=== PATIENT | female | born 1980 | race Two or more races ===

== ENCOUNTER 2021-09-28 13:27 | Emergency (ER) | payer OTHER ==
[~2021-09-28] VITALS: Ht 162.6 cm; Wt 86.2 kg
--- NOTE | 2021-09-28 14:36 | NUR ---
URINE SAMPLE COLLECTED AND SENT TO LAB
--- NOTE | 2021-09-28 14:37 | NUR ---
PT TAKEN TO RADIOLOGY VIA [facility]
--- NOTE | 2021-09-28 14:49 | NUR ---
PT RETURNED FROM RADIOLOGY
[2021-09-28 15:40] VITALS: BP 124/73
--- NOTE | 2021-09-28 15:40 | NUR ---
Patient discharged to home in stable condition. Written and verbal after care instructions given. Patient verbalizes understanding of instruction.
== END 2021-09-28 15:41 | disposition home or self-care (01) ==
LOC: ER 13:36
DX: S13.4XXA Sprain of ligaments of cervical spine, initial encounter (principal); S09.90XA Unspecified injury of head, initial encounter; W11.XXXA Fall on and from ladder, initial encounter; Y93.89 Activity, other specified; Y92.89 Other specified places as the place of occurrence of the external cause; Y99.0 Civilian activity done for income or pay
CPT/HCPCS: 70450-TC; 72125-TC; 72128-TC; 72131-TC; 84703-TC